=== PATIENT | female | born 1960 | race Caucasian/White ===

== ENCOUNTER 2018-12-01 06:32 | Day surgery (SDC) | payer BC ==
[2018-12-01] MEDS ORDERED: Lactated Ringers 1,000 ML IV SCH (07:00)
[2018-12-01] MEDS ORDERED: Cyanocobalamin (Vitamin B12) 1,000 MCG/ML SDV IM ONE (07:00)
[2018-12-01] MEDS ORDERED: Glycopyrrolate 0.2 MG/ML 2 ML SDV IVPUSH ONE (07:00)
[2018-12-01] MEDS ORDERED: Propofol 200 MG/20 ML SDV ONE (07:34)
[2018-12-01] MEDS ORDERED: fentaNYL 100 MCG/2 ML SDV ONE (07:34)
[2018-12-01] MEDS ORDERED: Midazolam 1 MG/ML 2 ML SDV ONE (07:34)
[2018-12-01] MEDS ORDERED: MVI, Adult with Vitamin K 10 ML, Thiamine 200 MG, Chromium/Copper/Mang/Selen/Zn 1 ML in... IV ONE ×4 (08:00)
--- NOTE | 2018-12-11 14:26 | OR ---
DATE OF PROCEDURE: 12/01/2018 PREOPERATIVE DIAGNOSIS: Probable stricture at gastrojejunostomy. POSTOPERATIVE DIAGNOSIS: Minimal stricture at gastrojejunostomy. OPERATIVE PROCEDURE: Upper gastrointestinal endoscopy with dilation of gastrojejunostomy (45389). ANESTHESIA: IV sedation. INDICATIONS FOR PROCEDURE: The patient is status post Justice-en-Y gastric bypass on 09/01/2018, presenting with symptoms suggestive of stricturing at the gastrojejunostomy. Plan is to proceed with upper GI endoscopy with dilation as indicated. Potential risks including bleeding and perforation were discussed, and the patient wishes to proceed. DETAILS OF PROCEDURE: The patient was taken to the operating room and placed in a left lateral decubitus position. IV sedation was administered, after which the upper GI endoscope was passed orally through the length of the esophagus and into the gastric pouch. No retained food or fluid was noted. The patient was noted to have some stricturing, but quite minimal. The 1 cm scope was able to be passed through the anastomosis. Using fluoroscopic surveillance, a Bard gastrointestinal balloon catheter was then centered across the anastomosis and inflated to 45-[place] size. This was held in position for 1 minute, after which the balloon catheter was deflated and withdrawn. Some degree of dilation was confirmed, and no complications were evident. The scope was then withdrawn and the procedure concluded. The patient was taken to the recovery room in satisfactory condition. Conrado Ng MD /[id number]
== END 2018-12-01 12:10 | disposition home or self-care (01) ==
LOC: JP.SDS 06:32
PROVIDERS: ATTEND Surgery
DX: K91.89 Other postprocedural complications and disorders of digestive system (principal); I10 Essential (primary) hypertension; E66.9 Obesity, unspecified; K21.9 Gastro-esophageal reflux disease without esophagitis; Z98.84 Bariatric surgery status; Z88.0 Allergy status to penicillin; Z88.8 Allergy status to other drugs, medicaments and biological substances; Z88.2 Allergy status to sulfonamides; Z88.7 Allergy status to serum and vaccine
CPT/HCPCS: 43245; J2250; J2704; J3010; J3411; J3420; J3490; J7120

== ENCOUNTER 2019-05-21 06:16 | Day surgery (SDC) | payer BC ==
[2019-05-21] MEDS ORDERED: Bupivacaine 0.5%/EPINEPHrine 1:200,000 50 ML MDV ONE (06:34)
[2019-05-21] MEDS ORDERED: Glycopyrrolate 0.2 MG/ML 5 ML MDV ONE (06:53)
[2019-05-21] MEDS ORDERED: Propofol 200 MG/20 ML SDV ONE (06:53)
[2019-05-21] MEDS ORDERED: Dexamethasone 4 MG/ML SDV ONE (06:53)
[2019-05-21] MEDS ORDERED: Ondansetron 4 MG/2 ML SDV ONE (06:53)
[2019-05-21] MEDS ORDERED: fentaNYL 250 MCG/5 ML SDV ONE (06:53)
[2019-05-21] MEDS ORDERED: Succinylcholine 200 MG/10 ML MDV ONE (06:53)
[2019-05-21] MEDS ORDERED: Neostigmine Methylsulfate 1 MG/ML 5 ML Syringe ONE (06:53)
[2019-05-21] MEDS ORDERED: Acetaminophen 500 MG Tab PO ONE (07:00)
[2019-05-21] MEDS: Dextrose 5%-Lactated Ringers 1,000 ML IV SCH ×2 (07:13→11:12)
[2019-05-21] MEDS ORDERED: Lidocaine 1% 2 ML ONE (08:00)
[2019-05-21] MEDS: cefOXitin 2 GM in Sodium Chloride 0.9% 50 ML IV ONE ×2 (09:00→11:09)
[2019-05-21] MEDS ORDERED: Sugammadex Sodium 200 MG/2 ML VIAL ONE (09:23)
[2019-05-21] MEDS ORDERED: HYDROmorphone 0.5 MG/0.5 ML Syringe IVPUSH PRN (10:27)
[2019-05-21] MEDS ORDERED: Ondansetron 4 MG/2 ML SDV IVPUSH PRN (10:27)
[2019-05-21] MEDS ORDERED: HYDROmorphone 1 MG/ML Syringe IV PRN (10:27)
[2019-05-21] MEDS ORDERED: Baclofen 10 MG Tab PO PRN (10:32)
[2019-05-21] MEDS ORDERED: busPIRone 10 MG Tab PO PRN (10:32)
[2019-05-21] MEDS: Amphetamine/Dextroamphetamine Salts 10 MG Tab PO SCH ×2 (11:06→17:04)
[2019-05-21] MEDS: Acetaminophen/HYDROcodone 325-5 MG Tab PO PRN ×3 (11:06→22:39)
[2019-05-21] MEDS: Potassium Chloride 20 MEQ, Lidocaine 1% 2 ML in Sodium Chloride 0.9% 100 ML IV SCH ×3 (11:13→17:04)
[2019-05-21] MEDS: Pantoprazole 40 MG Vial IV SCH (14:10)
[2019-05-21] MEDS: cefOXitin 2 GM in Sodium Chloride 0.9% 50 ML IV SCH ×2 (16:35→20:57)
[2019-05-22] MEDS: Acetaminophen/HYDROcodone 325-5 MG Tab PO PRN ×5 (01:27→14:58)
[2019-05-22] MEDS: Amphetamine/Dextroamphetamine Salts 10 MG Tab PO SCH ×2 (05:28→11:53)
--- NOTE | 2019-05-22 08:02 | OR ---
DATE OF PROCEDURE: 05/21/2019 SURGEON: Conrado Ng MD PREOPERATIVE DIAGNOSIS: Chronic cholecystitis and cholelithiasis. POSTOPERATIVE DIAGNOSIS: Chronic cholecystitis and cholelithiasis. OPERATIVE PROCEDURE: Laparoscopic cholecystectomy (94248). ANESTHESIA: General. FULLER BRUSH MAN: Britt Rossi PA-C. INDICATIONS FOR PROCEDURE: This is a 58-year-old presenting with symptoms suggestive of biliary colic, and the ultrasound confirmed gallstones, along with some thickening of the gallbladder wall. Given this, she is to undergo a cholecystectomy. Potential risks of the procedure including bleeding, infection, injury to the underlying viscera, and possible stones migrating into the common bile duct requiring additional procedures for correction were all reviewed, and the patient wishes to proceed. DETAILS OF PROCEDURE: The patient was taken to the operating room and placed in a supine position. After general endotracheal anesthesia was induced, she was converted to a lithotomy position, and the abdomen was prepped and draped. In the epigastrium, a transverse incision was made. The peritoneal cavity was entered under direct vision with an Optiview trocar and inflated to 15 mmHg pressure with CO2. Laparoscope was then reinserted. No underlying trocar insertion site injuries were seen. Following this, 12 mm subumbilical trocar was placed along with 5 mm right abdominal trocar. Bilateral transversus abdominis plane blocks were placed. The gallbladder was noted to be quite distended and somewhat edematous, consistent with chronic cholecystitis. Gallbladder was retracted anteriorly and laterally. Dissection was begun on the gallbladder neck and continued around the gallbladder neck and cystic duct junction. Once that area was well delineated along with adjacent cystic artery, both structures were clipped 3 times proximally and once distally, and divided. The gallbladder was then dissected off the gallbladder bed using Harmonic scalpel and delivered through the epigastric trocar site. It was noted to contain multiple small stones within it. The area of dissection was inspected. No bleeding or bile leaks were seen. Cystic duct closure appeared to be secure. Drain did not appear to be necessary. At that point, the trocars were sequentially removed. The fascia at the 12 mm site was closed with 0 Vicryl stitch and skin with 4-0 Vicryl skin stitch. At each of the incisions, dressings were applied. The patient was taken to the recovery room in a satisfactory condition. Physician nurse assistant, Britt Rossi, played an essential role in assisting in this case, helping to position the patient, retract structures as needed, as well as suturing and cutting sutures when indicated. Her presence improved patient safety and decreased the operative time. Conrado Ng MD /[id number]
--- NOTE | 2019-05-22 08:38 | DISCH ---
ADMISSION DIAGNOSES: 1. Acute and chronic cholecystitis and cholelithiasis. 2. Status post Justice-en-Y gastric bypass surgery. 3. Unspecified surgical malabsorption. 4. B12 deficiency. 5. ADD (attention deficit disorder). 6. Anxiety. 7. Depression. 8. Hepatomegaly, marked. 9. Hypersomnolence. 10.Hypertension. 11.Sleep apnea. DISCHARGE DIAGNOSES: Laparoscopic cholecystectomy for acute and chronic cholecystitis and cholelithiasis. Date of surgery: 05/21/2019. Surgeon: Conrado Ng MD. HISTORY: Terra Morse is a 58-year-old female with right upper quadrant abdominal pain and nausea. After preoperative evaluation and discussion of possible risks and possible complications, she wished to proceed with surgical procedure. HOSPITAL COURSE: Terra Adkins had her surgery on 05/21/2019. She had no operative complications. On postoperative day #1, she tolerated a regular diet. Her pain was well managed. Her activity was good and she was able to be discharged to home. PHYSICAL EXAMINATION: GENERAL: Terra Adkins is a pleasant 58-year-old female. She is alert and orientated. VITAL SIGNS: Height is 5 feet 2 inches, weight is 171 pounds. TPR 97.2, 82, 16, blood pressure 122/64. HEENT: Negative. NECK: Supple. HEART: Regular rate and rhythm. LUNGS: Clear. ABDOMEN: Dressings dry and intact. Abdominal binder is on. EXTREMITIES: Without peripheral edema. DISPOSITION: Discharged to home. CONDITION: Stable and improving. FOLLOWUP: Followup appointment with Britt Rossi PA-C, on 05/28/2019 at 11 a.m. HOME MEDICATIONS: 1. Mckenney 5/325 mg one every 6 hours p.r.n. pain, #28. 2. Potassium chloride 40 mEq daily for one week, then decrease to 20 mEq as prescribed by her primary care provider. 3. Tylenol 650 mg every 6 hours p.r.n. lesser pain. 4. Ventolin inhaler 1 to 2 puffs inhalation as directed for shortness of breath. 5. Baclofen 10 mg twice daily. 6. Calcium citrate one twice daily. 7. Vitamin B12 1000 mcg oral daily. 8. Adderall 20 mg 3 times daily. 9. Estrace 1 mg oral daily. 10.Fluoxetine 40 mg oral daily. 11.Omeprazole 20 mg oral daily. 12.Zofran ODT 4 mg every 4 hours p.r.n. nausea. 13.Buspar 10 mg oral 3 times a day p.r.n. anxiety. DISCHARGE DIET: Usual diet as tolerated. Drink 8 to 10 of glasses of water a day. ACTIVITY: No lifting over 10 pounds for 2 weeks. Other activity: Walk at least 6 times daily. Driving: Do not drive for 1 week and while on pain medication. Shower/bathing: May shower. DISCHARGE INSTRUCTIONS: Notify provider if any fever, increased pain, nausea, or vomiting. Keep site clean and dry. Wear abdominal binder for 2 weeks and then as tolerated. SPECIAL INSTRUCTIONS: Use incentive spirometer 10 times every hour while awake.
[2019-05-22] MEDS ORDERED: FLUoxetine 20 MG Cap PO SCH (09:00)
[2019-05-22] MEDS ORDERED: Estradiol 0.5 MG Tab PO SCH (09:00)
[2019-05-22] MEDS ORDERED: Hydrochlorothiazide 25 MG Tab PO SCH (09:00)
[2019-05-22] MEDS: Pantoprazole 40 MG Vial IV SCH (13:25)
== END 2019-05-22 15:50 | disposition home or self-care (01) ==
LOC: JP.SDS 06:16 → JP.ICU 10:15 → JP.MS 21:30 → JP.SDS 05-22 15:50
PROVIDERS: ATTEND Surgery
DX: K80.12 Calculus of gallbladder with acute and chronic cholecystitis without obstruction (principal); I10 Essential (primary) hypertension; E53.8 Deficiency of other specified B group vitamins; F98.8 Other specified behavioral and emotional disorders with onset usually occurring in childhood and adolescence; F41.9 Anxiety disorder, unspecified; F32.9 Major depressive disorder, single episode, unspecified; K91.2 Postsurgical malabsorption, not elsewhere classified; G47.33 Obstructive sleep apnea (adult) (pediatric); R16.0 Hepatomegaly, not elsewhere classified; R40.0 Somnolence; Z88.7 Allergy status to serum and vaccine; Z88.0 Allergy status to penicillin; Z88.2 Allergy status to sulfonamides; Z88.8 Allergy status to other drugs, medicaments and biological substances; Z98.84 Bariatric surgery status; Z79.899 Other long term (current) drug therapy
CPT/HCPCS: 36415; 47562; 80053; 85027; 88304; A9270; C9113; C9399; J0171; J0330; J0694; J1100; J2001; J2405; J2704; J2710; J2795; J3010; J3480; J3490; J7030; J7042; J7050

== ENCOUNTER 2019-08-08 16:15 | Inpatient (IN) | payer BC ==
[2019-08-08] MEDS ORDERED: Sodium Chloride 0.9% 10 ML Syringe FLUSH PRN (17:03)
[2019-08-08] MEDS ORDERED: Baclofen 10 MG Tab PO PRN (17:04)
[2019-08-08] MEDS ORDERED: Ondansetron 4 MG/2 ML SDV IVPUSH PRN (17:08)
[2019-08-08] MEDS ORDERED: risperiDONE 0.25 MG Tab PO PRN (17:10)
[2019-08-08] MEDS ORDERED: Lactated Ringers 500 ML IV ONE (17:15)
[2019-08-08] MEDS ORDERED: MVI, Adult with Vitamin K 10 ML, Thiamine 100 MG, Magnesium Sulfate 2 GM, Folic Acid 1 ... IV ONE ×5 (18:00)
[2019-08-08] MEDS: Pantoprazole 40 MG Vial IVPUSH SCH (20:42)
[2019-08-08] MEDS ORDERED: Acetaminophen 325 MG Tab PO PRN (20:46)
[2019-08-08] MEDS ORDERED: HYDROmorphone 1 MG/ML Syringe IVPUSH PRN (22:45)
[2019-08-09] MEDS ORDERED: diphenhydrAMINE 50 MG/ML SDV IVPUSH PRN (02:02)
[2019-08-09] MEDS: Amphetamine/Dextroamphetamine Salts 10 MG Tab PO SCH ×3 (07:55→15:10)
[2019-08-09] MEDS: Dextrose 5%-Lactated Ringers 1,000 ML IV SCH ×3 (07:55→23:11)
[2019-08-09] MEDS: busPIRone 10 MG Tab PO PRN ×3 (08:01→17:41)
[2019-08-09] MEDS ORDERED: Lidocaine 2% 100 MG/5 ML Syringe IVPUSH SCH (08:15)
[2019-08-09] MEDS ORDERED: Lidocaine 0.4%/D5W 2 GM/500 ML BAG IV SCH (08:15)
[2019-08-09] MEDS ORDERED: Ketamine 500 MG/5 ML MDV IV SCH ×2 (08:15)
[2019-08-09] MEDS: Potassium Chloride 20 MEQ Tab.ER PO SCH (09:37)
[2019-08-09] MEDS: FLUoxetine 20 MG Cap PO SCH (09:37)
[2019-08-09] MEDS: Estradiol 0.5 MG Tab PO SCH ×2 (09:37→09:39)
--- NOTE | 2019-08-09 13:17 | PN ---
DATE OF SERVICE: 08/09/2019 SUBJECTIVE: Terra Adkins has partial small bowel obstruction. States her pain is controlled. Vital signs have been stable. She has been n.p.o. with ice chips only. REVIEW OF SYSTEMS: Remainder of review of systems negative for any pertinent positives and negatives. OBJECTIVE: GENERAL: Terra Morse is a 59-year-old female. VITAL SIGNS: TPR is 97.3, 65, 16. Blood pressure 125/65. HEENT: Negative. NECK: Supple. HEART: Regular rate and rhythm. LUNGS: Clear. ABDOMEN: Less tender in the left upper and left mid quadrant than yesterday. EXTREMITIES: Without peripheral edema. ASSESSMENT: Partial small bowel obstruction. PLAN: 1. N.p.o. with ice chips only. 2. N.p.o. after midnight. 3. Schedule and have consent signed for open laparotomy with release of partial small bowel obstruction and possible small bowel resection and lysis of adhesions. General anesthesia on 08/10/2019. Surgeon, Conrado Ng MD. TAP block, ketamine bolus, and ketamine drip, lidocaine. Ordered cefoxitin 2 g IV on-call to OR. 4. We will evaluate p.r.n. or in a.. Britt Rossi PA-C /[id number]
[2019-08-09] MEDS: Pantoprazole 40 MG Vial IVPUSH SCH (18:47)
[2019-08-10] MEDS ORDERED: Meropenem 500 MG SDV ONE (06:39)
[2019-08-10] MEDS: Dextrose 5%-Lactated Ringers 1,000 ML IV SCH ×2 (07:57→23:11)
[2019-08-10] MEDS ORDERED: cefOXitin 2 GM in Sodium Chloride 0.9% 50 ML IV ONE (08:30)
[2019-08-10] MEDS ORDERED: Ketamine 50 MG in Sodium Chloride 0.9% 49.5 ML IV SCH (08:30)
[2019-08-10] MEDS ORDERED: Ropivacaine 36 ML, dexAMETHasone 8 MG, EPINEPHrine 0.4 MG, Sodium Chloride 0.9% 41.6 ML NERVRT SCH ×4 (08:30)
[2019-08-10] MEDS ORDERED: Ketamine 500 MG/5 ML MDV IV SCH (08:30)
[2019-08-10] MEDS ORDERED: Lidocaine 2% 100 MG/5 ML Syringe IVPUSH SCH (08:30)
[2019-08-10] MEDS: Potassium Chloride 20 MEQ Tab.ER PO SCH (09:04)
[2019-08-10] MEDS: FLUoxetine 20 MG Cap PO SCH (09:04)
[2019-08-10] MEDS: Amphetamine/Dextroamphetamine Salts 10 MG Tab PO SCH ×3 (09:04→16:12)
[2019-08-10] MEDS ORDERED: Bupivacaine 0.5% 50 ML MDV ONE (09:56)
[2019-08-10] MEDS ORDERED: Lidocaine 1% with EPINEPHrine 1:100,000 50 ML MDV ONE (09:56)
[2019-08-10] MEDS ORDERED: Naloxone 0.4 MG/ML SDV IVPUSH PRN (10:45)
[2019-08-10] MEDS ORDERED: HYDROmorphone/Normal Saline 15 MG/30 ML PCA IV PRN (10:45)
[2019-08-10] MEDS ORDERED: Naloxone 0.4 MG/ML SDV IV PRN (10:47)
[2019-08-10] MEDS ORDERED: Labetalol 20 MG/4 ML Syringe IVPUSH PRN (11:47)
[2019-08-10] MEDS ORDERED: diphenhydrAMINE 50 MG/ML SDV IVPUSH PRN (11:47)
[2019-08-10] MEDS ORDERED: Metoclopramide 10 MG/2 ML SDV IVPUSH PRN (11:47)
[2019-08-10] MEDS ORDERED: hydrOXYzine HCl 100 MG/2 ML SDV IM PRN (11:47)
[2019-08-10] MEDS: busPIRone 10 MG Tab PO PRN (12:17)
[2019-08-10] MEDS: Lidocaine 0.4%/D5W 2 GM/500 ML BAG IV SCH (12:18)
[2019-08-10] MEDS: cefOXitin 2 GM in Sodium Chloride 0.9% 50 ML IV SCH ×2 (13:42→19:14)
[2019-08-10] MEDS: Gabapentin 300 MG Cap PO SCH ×2 (14:09→21:01)
[2019-08-10] MEDS: Acetaminophen 325 MG Tab PO SCH ×2 (14:09→19:15)
[2019-08-10] MEDS: MVI, Adult with Vitamin K 10 ML, Thiamine 200 MG, Chromium/Copper/Mang/Selen/Zn 1 ML in... IV SCH ×4 (16:11)
[2019-08-10] MEDS: Heparin Sodium 5,000 Units/ML Vial SUBCUT SCH (16:12)
[2019-08-10] MEDS: Pantoprazole 40 MG Vial IVPUSH SCH ×2 (16:16→17:24)
--- NOTE | 2019-08-10 18:54 | PN ---
DATE OF SERVICE: 08/10/2019 SUBJECTIVE: Terra Adkins is n.p.o. for a partial small bowel obstruction. She has no questions or concerns. OBJECTIVE: GENERAL: Terra Morse is a 59-year-old female. VITAL SIGNS: TPR 97.3, 57, 16. Blood pressure 138/66. HEENT: Negative. NECK: Supple. HEART: Regular rate and rhythm. LUNGS: Clear. ABDOMEN: Less tender in the left upper and middle quadrant. EXTREMITIES: Without peripheral edema. ASSESSMENT: Partial small bowel obstruction. PLAN: Remain n.p.o. Orders to be written postoperatively. Britt Rossi PA-C /[id number]
[2019-08-11] MEDS: Acetaminophen 325 MG Tab PO SCH ×4 (01:47→21:17)
[2019-08-11] MEDS: cefOXitin 2 GM in Sodium Chloride 0.9% 50 ML IV SCH (01:47)
[2019-08-11] MEDS: Heparin Sodium 5,000 Units/ML Vial SUBCUT SCH ×2 (04:08→17:04)
[2019-08-11] MEDS ORDERED: Iopamidol 612 MG/ML 50 ML SDV PO ONE (04:34)
--- NOTE | 2019-08-11 05:16 | CRLCR ---
INDICATION: Status post Justice-en-Y gastric bypass surgery. COMPARISON: None available. FINDINGS: Two erect films of the abdomen were obtained after the oral ingestion of 50 cc of Isovue-300. The 1st images obtained immediately after contrast ingestion. The 2nd was obtained after 20 minutes. Contrast passes into the gastric pouch remnant and probably flows into the jejunum, indicating a widely patent gastrojejunostomy. There is no sign of any extravasation of contrast from the stomach or small bowel. There is prompt passage of the contrast from the proximal small bowel into the distal small bowel at 20 minutes. Multiple surgical clips are seen in the right upper quadrant from cholecystectomy. There is a line of surgical skin soy at the midline of the lower abdomen and upper pelvis consistent with recent abdominal surgery. The osseous structures are normal in appearance for the patient`s age. There is a tiny right pleural effusion. The lung bases are otherwise clear. IMPRESSION: No sign of any extravasation of contrast following Justice-en-Y gastric bypass surgery. Prompt passage of oral contrast from the gastric remnant into the small bowel. No sign of small bowel obstruction. Dictated by Zhou Kwan MD @ Aug 13 2019 2:11PM Signed by Dr. Zhou Kwan @ Aug 13 2019 2:14PM
[2019-08-11] MEDS: Dextrose 5%-Lactated Ringers 1,000 ML IV SCH (06:34)
[2019-08-11] MEDS: Lidocaine 0.4%/D5W 2 GM/500 ML BAG IV SCH (07:47)
[2019-08-11] MEDS ORDERED: Dextrose 5%-Lactated Ringers 1,000 ML IV SCH (08:30)
[2019-08-11] MEDS: Celecoxib 200 MG Cap PO SCH (08:50)
[2019-08-11] MEDS: Amphetamine/Dextroamphetamine Salts 10 MG Tab PO SCH ×3 (08:50→15:16)
[2019-08-11] MEDS: Potassium Chloride 20 MEQ Tab.ER PO SCH (08:50)
[2019-08-11] MEDS: FLUoxetine 20 MG Cap PO SCH (08:54)
[2019-08-11] MEDS: Gabapentin 300 MG Cap PO SCH ×3 (08:54→21:17)
[2019-08-11] MEDS: Docusate Sodium 100 MG Cap PO SCH ×2 (09:42→21:17)
[2019-08-11] MEDS: Bisacodyl 5 MG Tab PO SCH ×2 (09:42→21:16)
[2019-08-11] MEDS: busPIRone 10 MG Tab PO PRN (11:23)
--- NOTE | 2019-08-11 13:49 | PN ---
DATE OF SERVICE: 08/11/2019 The patient has been afebrile with stable vital signs. Urine output has been satisfactory. The plan will be to begin a step-2 diet today. We will begin some bowel stimulation. I think we will leave the TYPING POOL SUPERVISOR going for today, and otherwise maximize activity and work with pulmonary toilet. Conrado Ng MD /[id number]
[2019-08-11] MEDS: MVI, Adult with Vitamin K 10 ML, Thiamine 200 MG, Chromium/Copper/Mang/Selen/Zn 1 ML in... IV SCH ×4 (15:11)
[2019-08-11] MEDS: Pantoprazole 40 MG Vial IVPUSH SCH (17:04)
[2019-08-11] MEDS: HYDROmorphone 2 MG Tab PO PRN (21:27)
[2019-08-12] MEDS: Acetaminophen 325 MG Tab PO SCH ×4 (02:25→21:42)
[2019-08-12] MEDS: HYDROmorphone 2 MG Tab PO PRN ×3 (02:26→17:24)
[2019-08-12] MEDS: Heparin Sodium 5,000 Units/ML Vial SUBCUT SCH ×2 (05:10→17:11)
[2019-08-12] MEDS ORDERED: Magnesium Hydroxide 400 MG/5 ML Susp 30 ML Cup PO PRN (07:53)
[2019-08-12] MEDS: Amphetamine/Dextroamphetamine Salts 10 MG Tab PO SCH ×3 (08:30→17:11)
[2019-08-12] MEDS: Docusate Sodium 100 MG Cap PO SCH ×2 (08:30→21:42)
[2019-08-12] MEDS: Potassium Chloride 20 MEQ Tab.ER PO SCH (08:30)
[2019-08-12] MEDS: Celecoxib 200 MG Cap PO SCH (08:30)
[2019-08-12] MEDS: Bisacodyl 5 MG Tab PO SCH ×2 (08:31→21:42)
[2019-08-12] MEDS: FLUoxetine 20 MG Cap PO SCH (08:31)
[2019-08-12] MEDS: Gabapentin 300 MG Cap PO SCH ×3 (08:31→21:42)
[2019-08-12] MEDS ORDERED: Cyanocobalamin (Vitamin B12) 1,000 MCG/ML SDV IM ONE (09:00)
--- NOTE | 2019-08-12 13:05 | PN ---
DATE OF SERVICE: 08/12/2019 The patient has been afebrile with stable vital signs. Still has not moved her bowels yet, but feels some rumbling. We will continue bowel stimulation today she is otherwise feeling well. We will get her home tomorrow. Conrado Ng MD /[id number]
[2019-08-12] MEDS: MVI, Adult with Vitamin K 10 ML, Thiamine 200 MG, Chromium/Copper/Mang/Selen/Zn 1 ML in... IV SCH ×4 (17:02)
[2019-08-12] MEDS: Pantoprazole 40 MG Vial IVPUSH SCH (17:16)
[2019-08-13] MEDS: Heparin Sodium 5,000 Units/ML Vial SUBCUT SCH (04:18)
[2019-08-13] MEDS: Acetaminophen 325 MG Tab PO SCH ×2 (04:18→07:25)
[2019-08-13] MEDS: Potassium Chloride 20 MEQ Tab.ER PO SCH (07:25)
[2019-08-13] MEDS: Celecoxib 200 MG Cap PO SCH (07:25)
[2019-08-13] MEDS: Amphetamine/Dextroamphetamine Salts 10 MG Tab PO SCH (07:25)
[2019-08-13] MEDS ORDERED: Pantoprazole 40 MG Tab.CR PO SCH (09:00)
[2019-08-13] MEDS: FLUoxetine 20 MG Cap PO SCH (09:23)
[2019-08-13] MEDS: Bisacodyl 5 MG Tab PO SCH (09:24)
[2019-08-13] MEDS: Docusate Sodium 100 MG Cap PO SCH (09:24)
[2019-08-13] MEDS: Gabapentin 300 MG Cap PO SCH (09:25)
--- NOTE | 2019-08-13 12:30 | DISCH ---
ADMISSION DIAGNOSES: Partial small bowel obstruction, status post Justice-en-Y gastric bypass surgery, unspecified surgical malabsorption, B12 deficiency, vitamin D deficiency, attention deficit hyperactivity disorder, gastroesophageal reflux disease, and essential hypertension. DISCHARGE DIAGNOSES: Exploratory laparotomy with lysis of adhesion, reduction of small bowel volvulus and closure of internal hernia and small bowel resection, small bowel strictureplasty, and mobilization of omentum for small bowel volvulus and narrowing at the point of the Justice limb entering the JJ jejunojejunostomy, separate nodular area of stricture at the distal small bowel. Date of surgery 08/10/2019. Surgeon, Conrado Ng MD. HISTORY: Terra Morse is a 59-year-old female with postprandial abdominal pain. After preoperative evaluation and discussion of possible risks and possible complications, she wished to proceed with surgical procedure. HOSPITAL COURSE: Terra Adkins had her surgery on 08/10/2019. She had no operative complications. On postoperative day 1, her IV was decreased to 100 mL per hour. She was started on the step 2 gastric bypass diet and given bowel stimulation. On postoperative day 2, she continued to work on oral intake. Vital signs were stable. She did not have a bowel movement yet. On 08/13/2019, she was having bowel movements, vital signs were stable, pain was well managed, and she was able to be discharged to home. PHYSICAL EXAMINATION: GENERAL: Terra Morse is a 59-year-old female. VITAL SIGNS: Height is 5 feet 4.17 inches. Weight is 160 pounds. TPR; 97, 73, 16. Blood pressure 139/69. HEENT: Negative. NECK: Supple. HEART: Regular rate and rhythm. LUNGS: Clear. ABDOMEN: Aquacel dressing is on. This will be removed prior to discharge. Abdominal binder is on. EXTREMITIES: Without peripheral edema. DISPOSITION: Discharged to home. CONDITION: Stable and improving. FOLLOWUP: Followup appointment with Britt Rossi PA-C, on 08/20/2019 at 10 a.m. HOME MEDICATIONS: Celebrex 200 mg p.o. daily, #30; Dilaudid 2 mg 1 every 4 hours p.r.n. pain, #42. She is to resume her home medications. DIET: Step 3 gastric bypass diet for 1 month until 09/09/2019. Drink 8 to 10 glasses of water a day. ACTIVITY: As tolerated. No lifting greater than 10 pounds for 6 weeks. DRIVING: Do not drive for 1 week and while on pain medication. SHOWER/BATHING: May shower. DISCHARGE INSTRUCTIONS: Keep operative site clean and dry. Wear abdominal binder for 6 weeks and then if tolerated. Notify provider if any fever, increased pain, nausea, or vomiting. Use incentive spirometer 10 times every hour while awake for 1 week.
--- NOTE | 2019-08-16 23:02 | OR ---
DATE OF PROCEDURE: 08/10/2019 SURGEON: Conrado Ng MD PREOPERATIVE DIAGNOSIS: Partial small bowel obstruction. POSTOPERATIVE DIAGNOSES: Partial small bowel obstruction associated with a small bowel volvulus with narrowing at the point of the Justice limb entering jejunojejunostomy and separate nodular strictured area involving distal small bowel. OPERATIVE PROCEDURES: Exploratory laparotomy with lysis of adhesions: 1. Reduction of small bowel volvulus and closure of internal hernia (97783). 2. Small bowel resection (76727). 3. Small bowel stricturoplasty (55945). 4. Mobilization of omentum into pelvis to limit recurrent adhesion formation between pelvic and abdominal wall and underlying viscera (93750). ANESTHESIA: General. FOUNDATION COORDINATOR: Britt Rossi PA-C. INDICATIONS FOR PROCEDURE: This is a 59-year-old presenting with a picture of partial small bowel obstruction status post previous Justice-en-Y gastric bypass. Plan was to proceed with open limited laparotomy with reduction of volvulus that might be present as well as lysis of adhesions with possible bowel resection. Potential risks of the procedure including bleeding, infection, leaks from various GI tract closures, injury to underlying viscera, problems with the above obstructive pattern recurring over time were all reviewed, and the patient wishes to proceed. DETAILS OF PROCEDURE: The patient was taken to the operating room and placed in a supine position. After general endotracheal anesthesia was induced, a Jolley catheter was inserted, and the abdomen prepped and draped. A midline incision from the umbilicus roughly a handsbreadth towards the xiphoid was made and carried down through the full thickness of the abdominal wall. Upon entering the peritoneal cavity, general exploration was undertaken. The patient was noted to have some dusky appearing bowel and on inspection was found to have a volvulus in significant amount of small bowel. From a [id number] direction underneath the Justice limb, this was reduced and the bowel then became pink and lost the picture of venous stasis. The patient did have some narrowing where the Justice limb entered the jejunojejunostomy. Further inspection also showed a separate stricture present in this small bowel that was located in the very distal small bowel roughly around 12 cm proximal to the ileocecal valve and was related to some adhesion of the bowel to the lateral pelvic wall at that level. At this point, the Justice limb was detached from the jejunojejunostomy. At this time, this bowel was then resected to facilitate subsequent reconstruction. Around 10 cm of bowel had been removed and then after being divided with the LANDON stapler as was the underlying mesentery. At that point, anastomosis was accomplished 20 cm distal to the original jejunojejunostomy with a [id number] anastomosis with internal firing with Endo-LANDON 60 mm stapler. Common opening was closed transversely using the same stapler and the angles of anastomosis were reinforced with some 3-0 Vicryl stitch and the mesenteric defect closed with 2-0 silk stitch to provide some permanency. The area of the small bowel stricture was then encountered and the area of stricturing was opened with cautery. The bowel was then flipped back over on itself and internal firing of the Endo-LANDON 60 mm stapler followed by a 30 mm stapler internally was fired and the common opening was then closed transversely with the same stapler. The angles of anastomosis were reinforced with 3-0 Vicryl stitch and in this case there was no mesenteric defect. The area was then inspected and no further problems were noted. The patient was felt to be high risk for adhesions to the pelvic and abdominal wall underlying viscera especially in the small bowel without mobilization of the omentum down into the pelvis. This was accomplished with tacking the pelvis with mild tunneling in the pelvis in the area just behind the urinary bladder medially along the pelvic sidewall laterally with 2-0 Vicryl sutures. At this point, the midline fascia was approximated with #2 Vicryl stitch and subcutaneous tissue with 2 layers of 3-0 Vicryl stitch and the skin with soy. Dressing was applied. The patient received bilateral transversus abdominis plane blocks along with injection of Marcaine into the incision to facilitate postoperative pain control. The physician assistant inventory manager, Britt Rossi, played an essential role in assisting in this case helping to position the patient, retract structures as needed, as well as suturing and cutting sutures when indicated. Her presence improved patient's safety and decreased operative time. Conrado Ng MD /[id number]
== END 2019-08-13 11:33 | disposition home or self-care (01) | DRG 221 ==
LOC: JP.2SS 16:15
PROVIDERS: ADMIT Surgery; ATTEND Surgery
PROC: 0DS80ZZ Reposition Small Intestine, Open Approach (ICD-10-PCS; principal; 2019-08-10)
PROC: 0DB80ZZ Excision of Small Intestine, Open Approach (ICD-10-PCS; 2019-08-10)
DX: K56.51 Intestinal adhesions [bands], with partial obstruction (principal); K56.2 Volvulus; K91.2 Postsurgical malabsorption, not elsewhere classified; E53.8 Deficiency of other specified B group vitamins; E53.9 Vitamin B deficiency, unspecified; E55.9 Vitamin D deficiency, unspecified; F90.9 Attention-deficit hyperactivity disorder, unspecified type; K21.9 Gastro-esophageal reflux disease without esophagitis; F41.9 Anxiety disorder, unspecified; F32.9 Major depressive disorder, single episode, unspecified; R40.0 Somnolence; G47.30 Sleep apnea, unspecified; I10 Essential (primary) hypertension; Z79.899 Other long term (current) drug therapy; Z90.49 Acquired absence of other specified parts of digestive tract; Z90.710 Acquired absence of both cervix and uterus; Z98.84 Bariatric surgery status
CPT/HCPCS: 74177; 74240; 88305; 88307; 88341; 88342; 94762; A9270-GY; C9113; J0171; J0694; J1100; J1170; J1200; J1644; J2001; J2185; J2405; J2795; J3410; J3411; J3420; J3475; J3490; J7030; J7042; J7050; J7120; Q9967

== ENCOUNTER 2020-03-31 07:23 | Day surgery (SDC) | payer BC ==
[~2020-03-31 07:23] MED LIST: Midazolam 1 MG/ML 2 ML SDV ONE; Propofol 200 MG/20 ML SDV ONE; fentaNYL 100 MCG/2 ML SDV ONE
[2020-03-31] MEDS ORDERED: Lactated Ringers 1,000 ML IV ONE (07:30)
[2020-03-31] MEDS ORDERED: fentaNYL 100 MCG/2 ML SDV ONE (07:58)
[2020-03-31] MEDS ORDERED: Midazolam 1 MG/ML 2 ML SDV ONE (07:58)
[2020-03-31] MEDS ORDERED: Propofol 200 MG/20 ML SDV ONE (07:58)
[2020-03-31] MEDS ORDERED: Glycopyrrolate 0.2 MG/ML 2 ML SDV IVPUSH ONE (08:00)
[2020-03-31] MEDS ORDERED: Cyanocobalamin (Vitamin B12) 1,000 MCG/ML SDV IM ONE (08:00)
[2020-03-31] MEDS ORDERED: MVI, Adult with Vitamin K 10 ML, Thiamine 200 MG, Chromium/Copper/Mang/Selen/Zn 1 ML in... IV ONE ×4 (08:30)
--- NOTE | 2020-04-09 19:37 | OR ---
DATE OF PROCEDURE: 03/31/2020 SURGEON: Conrado Ng MD PREOPERATIVE DIAGNOSIS: Epigastric pain. POSTOPERATIVE DIAGNOSIS: Epigastric pain associated with mild pouch gastritis. OPERATIVE PROCEDURE: Upper gastrointestinal endoscopy with biopsies of gastric pouch for CLOtest. ANESTHESIA: IV sedation. INDICATION FOR PROCEDURE: The patient is status post Justice-en-Y gastric bypass in 2017. She did have a small bowel obstruction in July 2019 and presently she has been having some midepigastric pain and firmness across her abdomen with some bloating and increased gassing, burping. She has been taking Carafate and Protonix. The plan is to proceed with upper GI endoscopy with dilation and/or biopsies as indicated. Potential risks including bleeding and perforation were discussed, and the patient wishes to proceed. DETAILS OF PROCEDURE: The patient was taken to the operating room and placed in a left lateral decubitus position. IV sedation was administered, after which the upper GI endoscope was passed orally through the length of the esophagus and into the gastric pouch, from there through the gastrojejunostomy roughly 20 cm into the Justice limb. The findings included normal hypopharynx, larynx, upper esophageal sphincter, and esophageal body. At the EG junction, no significant inflammation was present. The gastric pouch likewise was perhaps very slightly reddened as it approached the gastrojejunostomy. Gastrojejunostomy was nonstenotic and there was no marginal ulcer present adjacent to it. The remainder of the Justice limb was unremarkable. There were bile leaks or growth suggestive of a partial bowel obstruction based on the findings today. Biopsies were obtained from the gastric pouch, sent for CLOtest for H. pylori. Minimal bleeding from the biopsy site was seen and the procedure was then concluded. The patient was taken to the recovery room in satisfactory condition. At this point, we will have the patient continue taking the Carafate and Protonix and will be following up with Britt Rossi in 2 to 3 weeks. Conrado Ng MD /[id number]
== END 2020-03-31 11:20 | disposition home or self-care (01) ==
LOC: JP.SDS 07:23
PROVIDERS: ATTEND Surgery
DX: K29.70 Gastritis, unspecified, without bleeding (principal); I10 Essential (primary) hypertension; K21.9 Gastro-esophageal reflux disease without esophagitis; F41.9 Anxiety disorder, unspecified; Z98.84 Bariatric surgery status
CPT/HCPCS: 36415; 43239; 80053; 82306; 82525; 82607; 82728; 82746; 83735; 84425; 84590; 84630; 85027; 87081; J2250; J2704; J3010; J3411; J3420; J3490; J7120